=== PATIENT | female | born 2000 ===

== ENCOUNTER 2021-12-20 09:52 | Outpatient (CLI) | payer OTHER | END 2021-12-20 10:25 | disposition home or self-care (01) | LOC: NST 09:52 | PROVIDERS: ATTEND Specialist | DX: Z34.83 Encounter for supervision of other normal pregnancy, third trimester (principal) ==

== ENCOUNTER 2021-12-24 13:15 | Inpatient (IN) | payer OTHER ==
[~2021-12-24] VITALS: Ht 157.5 cm; Wt 70.8 kg
[2021-12-27] MEDS ORDERED: IRON18 MG (07:28)
[2021-12-27] MEDS ORDERED: PRENATAL TABLE1 EAC5 (07:28)
== END 2021-12-30 12:25 | disposition home or self-care (01) | DRG 788 ==
LOC: EDUNIT# 13:15 → LDR 12-27 06:27 → OB/GYN 12-27 06:27
PROVIDERS: ADMIT Specialist; ATTEND Specialist
PROC: 4A1HXCZ Monitoring of Products of Conception, Cardiac Rate, External Approach (ICD-10-PCS; 2021-12-27)
PROC: 10D00Z1 Extraction of Products of Conception, Low, Open Approach (ICD-10-PCS; principal; 2021-12-27 17:30)
DX: O33.8 Maternal care for disproportion of other origin (principal); Z3A.39 39 weeks gestation of pregnancy; Z37.0 Single live birth; Z20.822 Contact with and (suspected) exposure to COVID-19

== ENCOUNTER 2022-01-04 11:07 | Inpatient (IN) | payer OTHER ==
[~2022-01-04] VITALS: Ht 157.5 cm; Wt 68.0 kg
[~2022-01-04 11:07] MED LIST: IRON18 MG; PRENATAL TABLE1 EAC5
[2022-01-08] MEDS ORDERED: CLEOCIN HCL300 MG PO (08:44)
== END 2022-01-08 12:01 | disposition home or self-care (01) | DRG 776 ==
LOC: ER 11:07 → OB/GYN 12:42
PROVIDERS: ADMIT Specialist; ATTEND Specialist
DX: O86.09 Infection of obstetric surgical wound, other surgical site (principal); B96.89 Other specified bacterial agents as the cause of diseases classified elsewhere; Z20.822 Contact with and (suspected) exposure to COVID-19